=== PATIENT | male | born 1995 | race Caucasian/White ===

== ENCOUNTER 2019-06-28 07:04 | Emergency (ER) | payer OTHER ==
[~2019-06-28] VITALS: Ht 172.7 cm; Wt 95.3 kg
[2019-06-28] MEDS ORDERED: ETOMIDATE (2MG/ML) 20ML VIAL IV ONE ×2 (08:19→08:30)
[2019-06-28] MEDS ORDERED: MIDAZOLAM HCL 5 MG/ML-1ML VIAL IV ONE (08:30)
[2019-06-28 08:55] VITALS: BP 132/87
== END 2019-06-28 09:08 | disposition home or self-care (01) ==
LOC: ER 07:06
DX: S43.005A Unspecified dislocation of left shoulder joint, initial encounter (principal); Z77.22 Contact with and (suspected) exposure to environmental tobacco smoke (acute) (chronic); X58.XXXA Exposure to other specified factors, initial encounter; Y93.89 Activity, other specified; Y92.89 Other specified places as the place of occurrence of the external cause; Y99.8 Other external cause status
CPT/HCPCS: 23650; 73020; 73030; 99152; 99285; J2250

== ENCOUNTER 2019-09-01 10:52 | Emergency (ER) | payer SELFPAY ==
[~2019-09-01] VITALS: Ht 170.2 cm; Wt 86.2 kg
[2019-09-01 11:12] VITALS: BP 119/77
[2019-09-01] MEDS ORDERED: ETOMIDATE (2MG/ML) 20ML VIAL IV ONE (11:30)
[2019-09-01] MEDS ORDERED: LORazepam 2MG/ML-1ML VIAL ONE (11:46)
[2019-09-01] MEDS ORDERED: LORazepam 2MG/ML-1ML VIAL IV ONE (12:00)
== END 2019-09-01 14:05 | disposition home or self-care (01) ==
LOC: ER 10:53
DX: S43.005A Unspecified dislocation of left shoulder joint, initial encounter (principal); X58.XXXA Exposure to other specified factors, initial encounter; Y93.89 Activity, other specified; Y99.8 Other external cause status; Y92.89 Other specified places as the place of occurrence of the external cause
CPT/HCPCS: 23650; 73020; 73030; 94761; 96374; 99152; 99285; J2060

== ENCOUNTER 2019-09-04 06:51 | Emergency (ER) | payer SELFPAY ==
[~2019-09-04] VITALS: Ht 167.6 cm; Wt 86.2 kg
[2019-09-04] MEDS ORDERED: KETAMINE 50mg/ML 10ml Vial (200mg/10ml) IV ONE (07:30)
[2019-09-04] MEDS ORDERED: KETAMINE HCL 1 ML ONE (07:41)
[2019-09-04 08:50] VITALS: BP 147/94
== END 2019-09-04 09:05 | disposition home or self-care (01) ==
LOC: ER 06:51
DX: S43.005A Unspecified dislocation of left shoulder joint, initial encounter (principal); X58.XXXA Exposure to other specified factors, initial encounter; Y93.89 Activity, other specified; Y99.8 Other external cause status; Y92.89 Other specified places as the place of occurrence of the external cause
CPT/HCPCS: 23650; 73020

== ENCOUNTER 2019-09-04 10:10 | Emergency (ER) | payer SELFPAY ==
[~2019-09-04] VITALS: Ht 167.6 cm; Wt 86.2 kg
[2019-09-04] MEDS ORDERED: PROMETHAZINE HCL 25 MG/ML 1ML IV ONE (10:30)
[2019-09-04 12:00] VITALS: BP 118/60
[2019-09-04] MEDS ORDERED: HYDROcodone-ACET 10/325MG TAB PO ONE (12:15)
== END 2019-09-04 12:41 | disposition home or self-care (01) ==
LOC: ER 10:19
DX: S43.005A Unspecified dislocation of left shoulder joint, initial encounter (principal); X58.XXXA Exposure to other specified factors, initial encounter; Y93.89 Activity, other specified; Y92.89 Other specified places as the place of occurrence of the external cause; Y99.8 Other external cause status
CPT/HCPCS: 23650; 73030; 96374; 99284; J2550